=== PATIENT | female | born 1995 | race Caucasian/White ===

== ENCOUNTER 2019-08-07 09:50 | Emergency (ER) | payer BC ==
[2019-08-07] MEDS ORDERED: DIPH,PERTUS(ACELL)TETVAC-LF 0.5 ML VIAL IM ONE (10:41)
--- NOTE | 2019-08-07 11:01 | ED ---
Animal Bite HPI - General Chief Complaint: Animal Bite Stated Complaint: dogbite Time Seen by Provider: 08/07/19 10:31 Source: patient Mode of arrival: ambulatory Limitations: no limitations - History of Present Illness Initial Comments: Patient is a 23-year-old female presenting to the emergency department after a friend's dog bit her on the right side of the cheek yesterday. Patient states the dog's vaccines are up-to-date, including rabies vaccine. Patient states the dog was spooked by another person and she was sitting on the ground next the dog when the dog turned and bit her. Patient did clean out the wounds right away with hydrogen peroxide and soap and water. Patient does not remember her last tetanus vaccine. Patient's wounds are not actively bleeding at this time. Patient has no other complaints at this time. Upon arrival to the ER, vital signs are stable. - Related Data Previous Rx's Medication Instructions Recorded Amoxicillin/Potassium Clav 1 tab PO BID 7 Days #14 tab 08/07/19 [Augmentin 875-125 Tablet] Allergies Allergy/AdvReac Type Severity Reaction Status Date / Time No Known Allergies Allergy Verified 08/07/19 10:04 Review of Systems ROS Statement: Those systems with pertinent positive or pertinent negative responses have been documented in the HPI. ROS Other: All systems not noted in ROS Statement are negative. Past Medical History Past Medical History: No Reported History History of Any Multi-Drug Resistant Organisms: None Reported Past Surgical History: No Surgical Hx Reported Past Psychological History: Anxiety, Depression Smoking Status: Never smoker Past Alcohol Use History: Occasional Past Drug Use History: None Reported General Exam - General Exam Comments Initial Comments: GENERAL: Well-appearing, well-nourished and in no acute distress. HEAD: Atraumatic, normocephalic. EYES: Pupils equal round and reactive to light, extraocular movements intact, sclera anicteric, conjunctiva are normal. ENT: TMs normal, nares patent, oropharynx clear without exudates. Moist mucous membranes. NECK: Normal range of motion, supple without lymphadenopathy or JVD. LUNGS: Breath sounds clear to auscultation bilaterally and equal. No wheezes rales or rhonchi. HEART: Regular rate and rhythm without murmurs, rubs or gallops. EXTREMITIES: Normal range of motion, no pitting or edema. No clubbing or cyanosis. NEUROLOGICAL: Cranial nerves II through XII grossly intact. Normal speech, normal gait. PSYCH: Normal mood, normal affect. SKIN: Warm, Dry, normal turgor, no rashes. Patient has 2 superficial wounds to the right lower cheek that are the healing and are not presently open. Patient also has a 1 cm laceration to the right lower cheek that is slightly gaping. No active bleeding at this time. Limitations: no limitations Course Vital Signs 08/07/19 08/07/19 10:02 11:34 Temperature 98.3 F 97.9 F Pulse Rate 89 76 Respiratory 18 16 Rate Blood Pressure 125/82 121/73 O2 Sat by Pulse 99 100 Oximetry Medical Decision Making - Medical Decision Making Patient is a 23-year-old female presenting with a dog bite wound to the right lower cheek. The dog was a friend's dog and is up-to-date with its vaccines. Patient had 2 smaller superficial puncture wounds to the right lower cheek as well as a 1 cm larger wound that it was slightly gaping. Wounds were cleaned and Steri-Strips were applied to the larger wound. Topical antibiotic and a bandage was applied to all wounds. Patient will be started on Augmentin and tetanus vaccine was updated today. Patient declines treatment for rabies at this time. Patient is stable for discharge at this time. Return parameters were discussed with the patient she verbalized understanding. Case discussed with Dr. Car. Disposition Clinical Impression: Dog bite of right cheek Disposition: HOME SELF-CARE Condition: Stable Instructions (If sedation given, give patient instructions): Animal Bite (ED) Additional Instructions: Please return to the Emergency Department if symptoms worsen or any other concerns. Keep wound clean and dry. May shower as usual and pat dry wound. Tetanus shot was updated today. Take antibiotics as prescribed. Prescriptions: Amoxicillin/Potassium Clav [Augmentin 875-125 Tablet] 1 tab PO BID 7 Days #14 tab Is patient prescribed a controlled substance at d/c from ED?: No Referrals: Didi Pollard DO [Primary Care Provider] - 1-2 days
[2019-08-07 11:35] VITALS: BP 121/73; PULSE 76; RESP 16; TEMP 97.9
== END 2019-08-07 11:32 | disposition home or self-care (01) ==
LOC: EC 09:50
DX: S01.451A Open bite of right cheek and temporomandibular area, initial encounter (principal); S00.87XA Other superficial bite of other part of head, initial encounter; Z23 Encounter for immunization; W54.0XXA Bitten by dog, initial encounter; Y93.89 Activity, other specified
CPT/HCPCS: 90471; 90715; 99283